=== PATIENT | female | born 1975 | race Caucasian/White ===

== ENCOUNTER → 2017-01-04 | Outpatient (CLI) | payer MEDICARE, OTHER ==
[2016-10-30 13:21] VITALS: BP 148/81
[~2017-01-04] MED LIST: ALPR0.25 PO; BACL20TA PO; BIOT5TAB PO; CHOL400D8 PO; CHOL400T2 PO; CYAN25003 SL; DEXT20CA PO; DIAZ5TAB4 PO; DICL100G7 TP; DOCU-27 PO; DOXY100T PO; FLUT9.9S NS; HYDR-2672 PO; IBUP-1060 PO; LACT1CAP12 PO; MECL25TA3 PO; MELA1TAB13 PO; NYST15CR TP; OMEG1CAP6 PO; PARO30TA2 PO; TOPI100T90 PO; TRAZ50TA15 PO; TRIM100T PO
--- NOTE | 2017-01-05 16:42 | RAD ---
PROCEDURE MR of the right shoulder HISTORY Right shoulder pain for 2 weeks. No known injury. COMPARISON None TECHNIQUE Standard noncontrast images are obtained. FINDINGS The acromioclavicular joint is intact. Mild rotator cuff tendinosis. Partial tear of the subscapularis tendon. No measurable tear or rupture of the supraspinatus or infraspinatus tendon. No significant subdeltoid bursal fluid. Mild intramuscular edema within the subscapularis. No significant subdeltoid bursal fluid. Tear of the superior labrum. Trace glenohumeral joint effusion. The biceps tendon is intact. No dislocation of the tendon. Small focus of signal replacement at the humeral head measures 7 millimeters likely a small cyst or enchondroma. No acute fracture. No acute soft tissue injury. IMPRESSION 1. Partial tear of the subscapularis tendon. Supraspinatus and infraspinatus tendinosis without measurable tear. 2. Superior labral tear. Electronically signed by: Perry Johnson MD (Jan 05, 2017 16:40:46)
== END | disposition home or self-care (01) ==
LOC: MRI 14:44
PROVIDERS: ATTEND Internal Medicine
DX: S43.401A Unspecified sprain of right shoulder joint, initial encounter (principal); X58.XXXA Exposure to other specified factors, initial encounter; Y93.89 Activity, other specified; Y92.89 Other specified places as the place of occurrence of the external cause; Y99.8 Other external cause status; M75.101 Unspecified rotator cuff tear or rupture of right shoulder, not specified as traumatic
CPT/HCPCS: 73221

== ENCOUNTER 2017-03-31 18:02 | Emergency (ER) | payer MEDICARE, OTHER ==
[~2017-03-31] VITALS: Ht 167.6 cm; Wt 113.4 kg
[~2017-03-31 18:02] MED LIST changes: -PARO30TA2 PO; +PARO30TA3 PO; -TRIM100T PO; +TRIM100T13 PO
[2017-03-31] MEDS ORDERED: ONDANSETRON ODT 4 MG TAB.RAPDIS. PO ONE (18:30)
[2017-03-31] MEDS ORDERED: HYDROmorphone 2 MG/ML VIAL IM ONE (18:30)
--- NOTE | 2017-03-31 18:42 | ED.ADGEN ---
Past Medical History Past Medical History: UTI, Other Additional Past Medical Histor: MS Past Surgical History: Tonsillectomy, Other Additional Past Surgical Histo: BACLOFEN PUMP PLACEMENT, L ANKLE Alcohol Use: None Drug Use: None Adult General Chief Complaint Chief Complaint: PAIN CONTROL HPI HPI Patient is a 41 year old female with history of multiple sclerosis, currently residing at nursing facility who presents with acute exacerbation of chronic right shoulder pain and mid and low back pain the past 2 days. Patient states pain is worse when she was being assist with transportation from transportation pain. Patient fell landing on her coccyx and striking her low back off of the running boards. Patient denies trauma to her right shoulder. She denies hitting her head or neck pain. Patient is on high-dose hydrocodone 5 times daily. She states her pain is pearly controlled and that her PCP wanted her to be evaluated in the ED for possible injury. No other acute symptoms or complaints. Review of Systems Review of Systems ROS as per HPI Current Medications Current Medications Current Medications Medications (Trade) Dose Ordered Sig/Denise Start Time Stop Time Status Last Admin Dose Admin Acetaminophen/ Hydrocodone Bitart (Lortab 10/325) 2 tab 1X ONCE 03/31/17 20:00 03/31/17 20:01 DC 03/31/17 20:10 2 TAB Hydromorphone HCl (Dilaudid) 2 mg 1X ONCE 03/31/17 18:30 03/31/17 18:31 DC 03/31/17 18:35 2 MG Ondansetron HCl (Zofran Odt) 4 mg 1X ONCE 03/31/17 18:30 03/31/17 18:31 DC 03/31/17 18:35 4 MG Allergies Allergies Allergies Coded Allergies Type Severity Reaction Last Updated Verified rituximab Allergy Severe Anaphylaxis 10/30/16 Yes nortriptyline Allergy Intermediate 10/30/16 Yes Physical Exam Physical Exam Constitutional: Well developed, well nourished, moderate discomfort secondary to pain. HENT: Normocephalic, atraumatic, bilateral external ears normal, oropharynx, nose normal. Eyes: PERRLA, EOMI, conjunctiva normal. Neck: Normal range of motion, no midline TTP. Cardiovascular:Heart rate regular rhythm, no murmur. Lungs & Thorax: Bilateral breath sounds clear to auscultation. Abdomen: Bowel sounds normal, soft, no tenderness. Skin: No bruising. Back: Lower lumbar surgical scar, no bruising, midline step-off or bony tenderness. Diffuse low back pain. Extremities: Shoulder pain, humeral head is palpable in the glenoid loss, no artery swelling or bruising. Pain reproduces with range of motion. Neurologic: Alert and oriented X 3, and upper extremity, no motor weakness or loss of sensation. Psychologic: Affect, anxious. Current Patient Data Vital Signs Vital Signs Date Time Temp Pulse Resp B/P (MAP) Pulse Ox O2 Delivery O2 Flow Rate FiO2 03/31/17 19:15 80 20 95 03/31/17 18:02 98.3 141/67 (91) Room Air 98.3 EKG EKG [] Radiology/Procedures Radiology/Procedures [] Course & Med Decision Making Course & Med Decision Making Pertinent Labs and Imaging studies reviewed. (See chart for details) [Pain addressed on ED arrival. No acute findings of injury on his clinical exam and CT imaging. Will return to [facility]. ] Dragon Disclaimer Dragon Disclaimer This electronic medical record was generated, in whole or in part, using a voice recognition dictation system. YESI CANADA DO March 31, 2017 18:42
[2017-03-31 19:15] VITALS: BP 141/67
[2017-03-31] MEDS ORDERED: HYDROcodone/APAP 10/325 1 TAB TABLET PO ONE (20:00)
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
== END 2017-03-31 20:47 | disposition home or self-care (01) ==
LOC: ER 18:40
DX: G89.29 Other chronic pain (principal); M25.511 Pain in right shoulder; M54.5 Low back pain; I05.0 Rheumatic mitral stenosis; Z88.8 Allergy status to other drugs, medicaments and biological substances; W01.198A Fall on same level from slipping, tripping and stumbling with subsequent striking against other object, initial encounter; Y93.89 Activity, other specified; Y92.89 Other specified places as the place of occurrence of the external cause; Y99.8 Other external cause status
CPT/HCPCS: 72128; 72131; 72192; 96372; 99284; J1170; Q0162